=== PATIENT | female | born 1985 | race Caucasian/White ===

== ENCOUNTER 2018-02-15 01:05 | Observation (INO) | payer BC ==
[2018-02-15] MEDS ORDERED: TORAdol 30 mg Injection IV ONE (01:36)
--- NOTE | 2018-02-15 01:39 | ERPHSYRPT ---
- History of Present Illness Time Seen by Provider: 02/15/18 01:30 Historian: patient Exam Limitations: no limitations Patient Subjective Stated Complaint: pt states she has upper abd pain wheich started in her back earlier tonight and wraps around abd now. descibes pain as pressure Triage Nursing Assessment: pt alert and oriented, answers questions approp. pt ambulatoryw ith steady gait noted. respirations nonlabored with lungs cta. abd soft and ontender to light palpation. bowel sounds present x4 Physician History: 32 y/o female comes to the ER with complaints of left upper quadrant and left upper back pain that started this evening. Pt describes the pain as sharp, constant, 8/10, and pt has not taken any pain meds. Pt denies any fever, chills , chest pain, shortness of breath, nausea, vomiting or urinary symptoms. Timing/Duration: today Activities at Onset: none Quality: sharpness Abdominal Pain Onset Location: flank Pain Radiation: back Severity of Pain-Max: severe Severity of Pain-Current: severe Modifying Factors: Improves With: nothing Associated Symptoms: denies symptoms Previous symptoms: no prior history Allergies/Adverse Reactions: No Known Drug Allergies Allergy (Verified 02/15/18 01:21) Home Medications: No Reportable Medications [No Reported Medications] 02/15/18 [History] Hx Tetanus, Diphtheria Vaccination/Date Given: Yes Hx Influenza Vaccination/Date Given: No Hx Pneumococcal Vaccination/Date Given: No Immunizations Up to Date: Yes - Review of Systems Constitutional: No Fever, No Chills Eyes: No Symptoms Ears, Nose, & Throat: No Symptoms Respiratory: No Cough, No Dyspnea Cardiac: No Chest Pain, No Edema, No Syncope Abdominal/Gastrointestinal: Abdominal Pain, No Nausea, No Vomiting, No Diarrhea Genitourinary Symptoms: No Dysuria, No Frequency, No Hematuria Musculoskeletal: Back Pain, No Neck Pain Skin: No Rash Neurological: No Dizziness, No Focal Weakness, No Sensory Changes Psychological: No Symptoms Endocrine: No Symptoms All Other Systems: Reviewed and Negative - Past Medical History Pertinent Past Medical History: No - Past Surgical History Past Surgical History: Yes Other Surgical History: breast augmentation - Social History Smoking Status: Current every day smoker How long have you smoked: 10yrs Exposure to second hand smoke: Yes Drug Use: none Patient Lives Alone: No - Female History Hx Last Menstrual Period: mirena Hx Now: No - Nursing Vital Signs Nursing Vital Signs: Initial Vital Signs Temperature 99.2 F 02/15/18 01:12 Pulse Rate 95 H 02/15/18 01:12 Respiratory Rate 18 02/15/18 01:12 Blood Pressure 134/98 02/15/18 01:12 O2 Sat by Pulse Oximetry 98 02/15/18 01:12 Pain Scale Pain Intensity 6 - Physical Exam General Appearance: mild distress, alert Eye Exam: PERRL/EOMI, eyes nml inspection Ears, Nose, Throat Exam: normal ENT inspection, pharynx normal, moist mucous membranes Neck Exam: normal inspection, non-tender, supple, full range of motion Respiratory Exam: normal breath sounds, lungs clear, No respiratory distress Cardiovascular Exam: regular rate/rhythm, normal heart sounds Gastrointestinal/Abdomen Exam: soft, normal bowel sounds, No tenderness, No mass Back Exam: normal inspection, normal range of motion, No CVA tenderness, No vertebral tenderness Extremity Exam: normal inspection, normal range of motion, pelvis stable Neurologic Exam: alert, oriented x 3, cooperative, normal mood/affect, nml cerebellar function, sensation nml, No motor deficits Skin Exam: normal color, warm, dry SpO2: 98 Oxygen Delivery: Room Air - Course Nursing assessment & vital signs reviewed: Yes Ordered Tests: Active Orders 24 hr Category Date Time Status IV Insertion STAT Care 02/15/18 01:36 Active NPO (ED) STAT Care 02/15/18 01:36 Active ABDOMEN AND PELVIS W&WO CONTRA [CT] Stat Exams 02/15/18 01:37 Taken AMYLASE Stat Lab 02/15/18 01:30 Completed CBC W DIFF Stat Lab 02/15/18 01:30 Completed CMP Stat Lab 02/15/18 01:30 Completed D-DIMER QUANTITATION Stat Lab 02/15/18 01:30 Completed HCG QUALITATIVE,SERUM Stat Lab 02/15/18 01:30 Completed LIPASE Stat Lab 02/15/18 01:30 Completed Lactic Acid Stat Lab 02/15/18 01:40 Completed UA W/RFX UR CULTURE Stat Lab 02/15/18 01:49 Completed Medication Summary Generic Name Dose Route Start Last Admin Trade Name Freq PRN Reason Stop Dose Admin Sodium Chloride 1,000 mls @ 999 mls/hr 02/15/18 03:06 02/15/18 03:13 Sodium Chloride 0.9% 1000 Ml IV 02/15/18 04:06 999 mls/hr .Q1H1M STA Administration Discontinued Medications Generic Name Dose Route Start Last Admin Trade Name Brandi PRN Reason Stop Dose Admin Sodium Chloride Confirm 02/15/18 03:07 Sodium Chloride 0.9% 1000 Ml Administered 02/15/18 03:08 Dose 1,000 mls @ ud .ROUTE .[employer] ONE Ketorolac Tromethamine 30 mg 02/15/18 01:36 02/15/18 01:48 Toradol 30 Mg Injection IV 02/15/18 01:37 30 mg STAT ONE Administration Ketorolac Tromethamine Confirm 02/15/18 01:46 Toradol 30 Mg Injection Administered 02/15/18 01:47 Dose 30 mg .ROUTE .[employer] ONE Lab/Rad Data: Laboratory Result Diagrams 02/15/18 01:30 02/15/18 01:30 Laboratory Results 02/15/18 02/15/18 02/15/18 Range/Units 01:49 01:40 01:30 WBC (4.0-10.5) K/mm3 RBC (4.1-5.4) M/mm3 Hgb (12.0-16.0) gm/dl Hct (35-47) % MCV (78-100) fl MCH (26-32) pg MCHC (32-36) g/dl RDW (11.5-14.0) % Plt Count (150-450) K/mm3 MPV (6-9.5) fl Gran % (36.0-66.0) % Eos # (Auto) (0-0.5) Absolute Lymphs (auto) (1.0-4.6) Absolute Monos (auto) (0.0-1.3) Lymphocytes % (24.0-44.0) % Monocytes % (0.0-12.0) % Eosinophils % (0.00-5.0) % Basophils % (0.0-0.4) % Absolute Granulocytes (1.4-6.9) Basophils # (0-0.4) D-Dimer 927 H* (215-500) ng/mL Sodium (137-145) mmol/L Potassium (3.5-5.1) mmol/L Chloride (98-107) mmol/L Carbon Dioxide (22-30) mmol/L Anion Gap (5-15) MEQ/L BUN (7-17) mg/dL Creatinine (0.52-1.04) mg/dL Estimated GFR ML/MIN Glucose (74-106) mg/dL Lactic Acid 0.7 (0.4-2.0) Calcium (8.4-10.2) mg/dL Total Bilirubin (0.2-1.3) mg/dL AST (14-36) U/L ALT (0-35) U/L Alkaline Phosphatase (38-126) U/L Serum Total Protein (6.3-8.2) g/dL Albumin (3.5-5.0) g/dL Amylase (30-110) U/L Lipase (23-300) U/L Serum , Qual (Negative) Ur Collection Type VOID Urine Color GREEN (YELLOW) Urine Appearance HAZY (CLEAR) Urine pH 8.0 (5-6) Ur Specific [place] 1.005 (1.005-1.025) Urine Protein NEGATIVE (Negative) Urine Ketones NEGATIVE (NEGATIVE) Urine Blood NEGATIVE (0-5) Melecio/ul Urine Nitrite NEGATIVE (NEGATIVE) Urine Bilirubin NEGATIVE (NEGATIVE) Urine Urobilinogen NORMAL (0-1) mg/dL Ur Leukocyte Esterase NEGATIVE (NEGATIVE) Urine Culture Reflexed NO (NO) Urine Glucose NEGATIVE (NEGATIVE) mg/dL Specimen Received 02/15 21502/15/18 02/15/18 02/15/18 Range/Units 01:30 01:30 01:30 WBC 7.5 (4.0-10.5) K/mm3 RBC 4.90 (4.1-5.4) M/mm3 Hgb 14.9 (12.0-16.0) gm/dl Hct 42.1 (35-47) % MCV 85.9 (78-100) fl MCH 30.4 (26-32) pg MCHC 35.4 (32-36) g/dl RDW 13.3 (11.5-14.0) % Plt Count 181 (150-450) K/mm3 MPV 9.9 H (6-9.5) fl Gran % 60.9 (36.0-66.0) % Eos # (Auto) 0.16 (0-0.5) Absolute Lymphs (auto) 2.10 (1.0-4.6) Absolute Monos (auto) 0.65 (0.0-1.3) Lymphocytes % 28.0 (24.0-44.0) % Monocytes % 8.7 (0.0-12.0) % Eosinophils % 2.1 (0.00-5.0) % Basophils % 0.3 (0.0-0.4) % Absolute Granulocytes 4.57 (1.4-6.9) Basophils # 0.02 (0-0.4) D-Dimer (215-500) ng/mL Sodium 140 (137-145) mmol/L Potassium 4.1 (3.5-5.1) mmol/L Chloride 104 (98-107) mmol/L Carbon Dioxide 25 (22-30) mmol/L Anion Gap 14.6 (5-15) MEQ/L BUN 14 (7-17) mg/dL Creatinine 0.91 (0.52-1.04) mg/dL Estimated GFR > 60.0 ML/MIN Glucose 99 (74-106) mg/dL Lactic Acid (0.4-2.0) Calcium 9.6 (8.4-10.2) mg/dL Total Bilirubin 0.50 (0.2-1.3) mg/dL AST 23 (14-36) U/L ALT 22 (0-35) U/L Alkaline Phosphatase 55 (38-126) U/L Serum Total Protein 7.8 (6.3-8.2) g/dL Albumin 4.7 (3.5-5.0) g/dL Amylase 56 (30-110) U/L Lipase 172 (23-300) U/L Serum , Qual NEGATIVE (Negative) Ur Collection Type Urine Color (YELLOW) Urine Appearance (CLEAR) Urine pH (5-6) Ur Specific [place] (1.005-1.025) Urine Protein (Negative) Urine Ketones (NEGATIVE) Urine Blood (0-5) Melecio/ul Urine Nitrite (NEGATIVE) Urine Bilirubin (NEGATIVE) Urine Urobilinogen (0-1) mg/dL Ur Leukocyte Esterase (NEGATIVE) Urine Culture Reflexed (NO) Urine Glucose (NEGATIVE) mg/dL Specimen Received - Progress Progress: improved Progress Note: 02/15/18 03:57 Pt feels better after receiving toradol. After re-evaluating the patient, she states that the pain started epigastric area, radiating to the LUQ and towards the upper part of the back. The patient went for CT scan abd/pelvis and the d- dimer came back elevated at 927. As a result, since the patient did receive IV contrast, either a CTA chest or V/Q scan needs to be performed later in the day. The CT abd/pelvis shows a distended gallbladder and mild gallbladder wall thickening. The labs, including LFTs are within normal limits. Since the patient is on mirena and did have a SBP drop in the 90's with an elevated d- dimer, patient will receive a dose of lovenox. Pt will receive a CTA chest or V/ Q scan and a gallbladder US later today. Pt has been admitted to Dr Cadena. - Departure Time of Disposition: 04:03 Departure Disposition: Observation Clinical Impression: Abdominal pain Qualifiers: Abdominal location: left upper quadrant Qualified Code(s): R10.12 - Left upper quadrant pain Condition: Stable Critical Care Time: No
[2018-02-15] MEDS ORDERED: TORAdol 30 mg Injection ONE (01:46)
[2018-02-15 02:10] LABS: ALBUMIN 4.7 g/dL (3.5-5.0); ALKALINE PHOSPHATASE 55 U/L (38-126); AMYLASE 56 U/L (30-110); ANION GAP 14.6 MEQ/L (5-15); BLOOD UREA NITROGEN 14 mg/dL (7-17); CHLORIDE 104 mmol/L (98-107); Calcium 9.6 mg/dL (8.4-10.2); Carbon Dioxide 25 mmol/L (22-30); Creatinine 1 0.91 mg/dL (0.52-1.04); Glucose 99 mg/dL (74-106); LIPASE 172 U/L (23-300); Potassium 4.1 mmol/L (3.5-5.1); SGOT/AST 23 U/L (14-36); SGPT/ALT 22 U/L (0-35); SODIUM 140 mmol/L (137-145); Total Protein 7.8 g/dL (6.3-8.2)
[2018-02-15 02:13] LABS: BASOPHIL % 0.3 % (0.0-0.4); Basophil (Absolute #) 0.02 (0-0.4); Eosinophil % 2.1 % (0.00-5.0); Eosinophil (Absolute #) 0.16 (0-0.5); Granulocyte Absolute (ANC) 4.57 (1.4-6.9); Granulocytes % 60.9 % (36.0-66.0); Hematocrit 42.1 % (35-47); Hemoglobin 14.9 gm/dl (12.0-16.0); Mean Cell Volume 85.9 fl (78-100); Mean Corpuscular Hemoglobin 30.4 pg (26-32); Mean Corpuscular Hgb Concent. 35.4 g/dl (32-36); Mean Platelet Volume 9.9 fl (6-9.5); Monocyte (Absolute #) 0.65 (0.0-1.3); Monocytes % 8.7 % (0.0-12.0); Platelet Count 181 K/mm3 (150-450); Red Cell Distribution Width 13.3 % (11.5-14.0); White Blood Count 7.5 K/mm3 (4.0-10.5)
[2018-02-15 02:16] LABS: Appearance HAZY (CLEAR); Bilirubin NEGATIVE (NEGATIVE); Blood NEGATIVE Ery/ul (0-5); Glucose NEGATIVE (NEGATIVE); Ketones NEGATIVE (NEGATIVE); Leukocyte Esterase NEGATIVE (NEGATIVE); Nitrite NEGATIVE (NEGATIVE); Protein,Urine Dip NEGATIVE (Negative); Specific Gravity 1.005 (1.005-1.025); Urobilinogen NORMAL mg/dL (0-1)
[2018-02-15] MEDS ORDERED: Sodium Chloride 0.9% 1000 ML 1,000 ML IV STA (03:06)
[2018-02-15] MEDS ORDERED: Sodium Chloride 0.9% 1000 ML 1,000 ML ONE (03:07)
[2018-02-15] MEDS ORDERED: ENOXAPARIN SODIUM SQ ONE ×2 (03:56→04:00)
[2018-02-15] MEDS ORDERED: MORPHINE SULFATE 2 MG INJ IV PRN (04:03)
[2018-02-15] MEDS ORDERED: Zofran 4 MG/2 ML VIAL IV PRN (04:03)
[2018-02-15] MEDS ORDERED: ENOXAPARIN SODIUM SQ SCH ×2 (04:15→18:00)
[2018-02-15] MEDS ORDERED: Sodium Chloride 0.9% 1000 ML 1,000 ML IV SCH (04:15)
--- NOTE | 2018-02-15 08:39 | XRAY ---
Indication: Diffuse abdominal pain. Multiple contiguous axial images obtained through the abdomen and pelvis prior to and following 80 cc Isovue 370 contrast only. Comparison: None Lung bases demonstrates mild bibasilar dependent atelectasis. No infiltrate or effusion. Heart is not enlarged. Partially visualized bilateral breast implants. Noncontrasted images through the abdomen negative for pathologic visceral calcification/calculi. Noncontrasted stomach and bowel loops appear nonobstructed. Normal appendix. Mild scattered colonic fecal debris throughout. Small cul-de-sac free fluid presumed physiologic from rupture/leaking cyst. IUD in situ. Postcontrast images demonstrates normal visceral enhancement and renal excretion. Borderline gallbladder wall thickening without gallstones or biliary distention. Remaining liver, pancreas, spleen, adrenal glands, kidneys, ureters, bladder, and aorta appear unremarkable. No pathologic retroperitoneal lymphadenopathy. Osseous structures intact. No ventral or inguinal hernias. Impression: 1. Borderline gallbladder wall thickening. Gallbladder sonogram yield further information if clinically warranted. 2. Mild fecal stasis without obstruction. 3. Negative pathologic visceral calcification/calculi. 4. Small cul-de-sac fluid presumed physiologic. Comment: Preliminary interpretation was made by [facility]. No critical discrepancy. CTDI 15.22
--- NOTE | 2018-02-15 08:41 | XRAY ---
Indication: Abdomen pain. Gallbladder wall thickening on same-day CT. Two-dimensional gallbladder sonogram performed. Comparison: None Gallbladder normally distended with 2 cm gallstone. There is gallbladder wall thickening measuring 3.9 mm. No pericholecystic fluid. Common bile duct measures 4.3 mm. No intrahepatic biliary distention. Remaining visualized portions of the liver, pancreas, and right kidney appear sonographically normal. Right kidney measures 10.5 cm in length. No ascites. Impression: Cholelithiasis with gallbladder wall thickening. Rule out chronic cholecystitis.
--- NOTE | 2018-02-15 09:13 | PCM.HP ---
History of Present Illness - Chief Complaint Chief Complaint: abdominal pain History of Present Illness: is a 32 year old female who started having L sided thoracic pain last night while watching TV, regardless of position. At 11:30 pm last night woke with severe epigastric pain radiating to LUQ and L thoracic back, 10/10 initially, then 8/10 in ER. Mar[place] like "a tennis ball" in her epigastric area when she laid on her stomach. Ate nachos and sausage, which is normal for her. Marble a lot better prior to receiving the toradol. Since then has only some soreness in her thoracic back, and would like to drink. Urinating fine. Does have a mirena IUD. D-dimer elevated. Systolic BP was in the 90s at one point so she was given lovenox at admission. She did go to [place] [address] showed distended gallbladder with wall thickening, bilat ovarian cysts, and small amt free pelvic fluid. - Review of Systems Abdominal/Gastrointestinal: Abdominal Pain, Nausea (with pain), Diarrhea ( chronic) All Other Systems: Reviewed and Negative Medications & Allergies Home Medications: Home Medication List No Reportable Medications [No Reported Medications] 02/15/18 [History Confirmed 02/15/18] Allergies/Adverse Reactions: Allergies Allergy/AdvReac Type Severity Reaction Status Date / Time No Known Drug Allergies Allergy Verified 02/15/18 01:21 - Past Medical History Past Medical History: No - Female History Hx Last Menstrual Period: mirena Are you now?: No - Past Surgical History Past Surgical History: Yes Other Surgical History: breast augmentation. LEEP last may - Social History Smoking Status: Current every day smoker How long have you smoked: 10yrs Exposure to second hand smoke: Yes Alcohol: Occasionally Drug Use: none - Physical Exam Vital Signs: Vital Signs - 24 hr Temp Pulse Resp BP Pulse Ox 02/15/18 08:00 98.5 F 69 16 97/53 99 02/15/18 05:04 98.7 F 87 18 127/81 97 02/15/18 04:03 98 02/15/18 03:14 99.2 F 71 18 93/55 98 02/15/18 01:55 94 H 18 117/74 98 02/15/18 01:12 99.2 F 95 H 18 134/98 98 Results - Labs Lab/Micro Results: Lab Results-Last 24 Hours 02/15/18 02/15/18 02/15/18 Range/Units 01:30 01:30 01:30 WBC 7.5 (4.0-10.5) K/mm3 RBC 4.90 (4.1-5.4) M/mm3 Hgb 14.9 (12.0-16.0) gm/dl Hct 42.1 (35-47) % MCV 85.9 (78-100) fl MCH 30.4 (26-32) pg MCHC 35.4 (32-36) g/dl RDW 13.3 (11.5-14.0) % Plt Count 181 (150-450) K/mm3 MPV 9.9 H (6-9.5) fl Gran % 60.9 (36.0-66.0) % Eos # (Auto) 0.16 (0-0.5) Absolute Lymphs (auto) 2.10 (1.0-4.6) Absolute Monos (auto) 0.65 (0.0-1.3) Lymphocytes % 28.0 (24.0-44.0) % Monocytes % 8.7 (0.0-12.0) % Eosinophils % 2.1 (0.00-5.0) % Basophils % 0.3 (0.0-0.4) % Absolute Granulocytes 4.57 (1.4-6.9) Basophils # 0.02 (0-0.4) D-Dimer (215-500) ng/mL Sodium 140 (137-145) mmol/L Potassium 4.1 (3.5-5.1) mmol/L Chloride 104 (98-107) mmol/L Carbon Dioxide 25 (22-30) mmol/L Anion Gap 14.6 (5-15) MEQ/L BUN 14 (7-17) mg/dL Creatinine 0.91 (0.52-1.04) mg/dL Estimated GFR > 60.0 ML/MIN Glucose 99 (74-106) mg/dL Lactic Acid (0.4-2.0) Calcium 9.6 (8.4-10.2) mg/dL Total Bilirubin 0.50 (0.2-1.3) mg/dL AST 23 (14-36) U/L ALT 22 (0-35) U/L Alkaline Phosphatase 55 (38-126) U/L Serum Total Protein 7.8 (6.3-8.2) g/dL Albumin 4.7 (3.5-5.0) g/dL Amylase 56 (30-110) U/L Lipase 172 (23-300) U/L Serum , Qual NEGATIVE (Negative) Ur Collection Type Urine Color (YELLOW) Urine Appearance (CLEAR) Urine pH (5-6) Ur Specific [place] (1.005-1.025) Urine Protein (Negative) Urine Ketones (NEGATIVE) Urine Blood (0-5) Melecio/ul Urine Nitrite (NEGATIVE) Urine Bilirubin (NEGATIVE) Urine Urobilinogen (0-1) mg/dL Ur Leukocyte Esterase (NEGATIVE) Urine Culture Reflexed (NO) Urine Glucose (NEGATIVE) mg/dL Specimen Received 02/15/18 02/15/18 02/15/18 Range/Units 01:30 01:40 01:49 WBC (4.0-10.5) K/mm3 RBC (4.1-5.4) M/mm3 Hgb (12.0-16.0) gm/dl Hct (35-47) % MCV (78-100) fl MCH (26-32) pg MCHC (32-36) g/dl RDW (11.5-14.0) % Plt Count (150-450) K/mm3 MPV (6-9.5) fl Gran % (36.0-66.0) % Eos # (Auto) (0-0.5) Absolute Lymphs (auto) (1.0-4.6) Absolute Monos (auto) (0.0-1.3) Lymphocytes % (24.0-44.0) % Monocytes % (0.0-12.0) % Eosinophils % (0.00-5.0) % Basophils % (0.0-0.4) % Absolute Granulocytes (1.4-6.9) Basophils # (0-0.4) D-Dimer 927 H* (215-500) ng/mL Sodium (137-145) mmol/L Potassium (3.5-5.1) mmol/L Chloride (98-107) mmol/L Carbon Dioxide (22-30) mmol/L Anion Gap (5-15) MEQ/L BUN (7-17) mg/dL Creatinine (0.52-1.04) mg/dL Estimated GFR ML/MIN Glucose (74-106) mg/dL Lactic Acid 0.7 (0.4-2.0) Calcium (8.4-10.2) mg/dL Total Bilirubin (0.2-1.3) mg/dL AST (14-36) U/L ALT (0-35) U/L Alkaline Phosphatase (38-126) U/L Serum Total Protein (6.3-8.2) g/dL Albumin (3.5-5.0) g/dL Amylase (30-110) U/L Lipase (23-300) U/L Serum , Qual (Negative) Ur Collection Type VOID Urine Color GREEN (YELLOW) Urine Appearance HAZY (CLEAR) Urine pH 8.0 (5-6) Ur Specific [place] 1.005 (1.005-1.025) Urine Protein NEGATIVE (Negative) Urine Ketones NEGATIVE (NEGATIVE) Urine Blood NEGATIVE (0-5) Melecio/ul Urine Nitrite NEGATIVE (NEGATIVE) Urine Bilirubin NEGATIVE (NEGATIVE) Urine Urobilinogen NORMAL (0-1) mg/dL Ur Leukocyte Esterase NEGATIVE (NEGATIVE) Urine Culture Reflexed NO (NO) Urine Glucose NEGATIVE (NEGATIVE) mg/dL Specimen Received 02/15 215 - Radiology Impressions Radiology Exams & Impressions: Radiology Procedures Category Date Time Status ABDOMEN AND PELVIS W&WO CONTRA [CT] Stat Exams 02/15/18 01:37 Completed GALLBLADDER [US] Stat Exams 02/15/18 04:50 Completed Assessment/Plan (1) Thoracic back pain Current Visit: Yes Status: Acute Qualifiers: Chronicity: acute Back pain laterality: left Qualified Code(s): M54.6 - Pain in thoracic spine Assessment & Plan: would still like to r/o PE, na in light of recent travel and elevated d-dimer. VQ scan today. Code(s): M54.6 - PAIN IN THORACIC SPINE (2) Elevated d-dimer Current Visit: Yes Status: Acute Code(s): R79.89 - OTHER SPECIFIED ABNORMAL FINDINGS OF BLOOD CHEMISTRY (3) Abdominal pain Current Visit: Yes Status: Acute Qualifiers: Abdominal location: left upper quadrant Qualified Code(s): R10.12 - Left upper quadrant pain Assessment & Plan: likely d/t cholecystitis. u/s pending. Code(s): R10.9 - UNSPECIFIED ABDOMINAL PAIN
--- NOTE | 2018-02-15 13:52 | XRAY ---
Indication: Left back pain, short of breath, and elevated d-dimer. Comparison: None Patient received 5.2 mCi technetium 99 MAA for the perfusion portion of the exam. Patient inhaled 32.5 mCi of aerosolized technetium 99 DTPA for the ventilation portion. Multiplanar images obtained. Perfusion images demonstrates homogeneous radiopharmaceutical activity bilaterally without segmental/subsegmental perfusion defects. Ventilation images also demonstrates homogeneous radiopharmaceutical activity bilaterally. Impression: Normal nuclear medicine ventilation perfusion scan.
--- NOTE | 2018-02-15 13:54 | XRAY ---
Indication: Short of breath and left back pain. Elevated d-dimer. Comparison: None PA/lateral chest demonstrates normal heart, lungs, and bony thorax with a few tiny incidental calcified granulomas.
--- NOTE | 2018-02-15 15:19 | PCM.DS ---
Discharge Summary Date of Admission: 02/15/18 04:41 Admitting Physician: KIRAN MCKEON Primary Care Provider: KIRAN MCKEON Allergies Allergies No Known Drug Allergies Allergy (Verified 02/15/18 01:21) Hospital Summary - Hospital Course Hospital Course: Pt admitted through ER with back pain and epigastric pain. CT abd/pelvis with borderline gallbladder wall thickening and mild fecal stasis. GB ultrasound with cholelithiasis and cholecystitis. D-dimer was quite elevated (927) in the ER, but unable to do another scan with IV contrast since it was within 24 hours of [address] abdominal CT scan. Pt was given a therapeutic dose of lovenox. This morning she noted her back was just "sore" but she had a hx of a trip to [place] 2 weeks ago, so VQ scan was ordered and negative. Now she is very hungry. I discussed low fat diet with her this morning. Will d/c to home and have her f/.u with surgery. - Vitals & Intake/Output Vital Signs: Vital Signs Temperature 98.5 F 02/15/18 12:00 Pulse Rate 65 02/15/18 12:00 Respiratory Rate 16 02/15/18 12:00 Blood Pressure 95/54 02/15/18 12:00 O2 Sat by Pulse Oximetry 98 02/15/18 12:00 Intake & Output: Intake & Output 02/13/18 02/14/18 02/15/18 02/16/18 11:59 11:59 11:59 11:59 Weight 71.9 kg - Lab Result Diagrams: 02/15/18 01:30 02/15/18 01:30 Lab Results-Last 24 Hrs: Lab Results-Last 24 Hours 02/15/18 02/15/18 02/15/18 Range/Units 01:30 01:30 01:30 WBC 7.5 (4.0-10.5) K/mm3 RBC 4.90 (4.1-5.4) M/mm3 Hgb 14.9 (12.0-16.0) gm/dl Hct 42.1 (35-47) % MCV 85.9 (78-100) fl MCH 30.4 (26-32) pg MCHC 35.4 (32-36) g/dl RDW 13.3 (11.5-14.0) % Plt Count 181 (150-450) K/mm3 MPV 9.9 H (6-9.5) fl Gran % 60.9 (36.0-66.0) % Eos # (Auto) 0.16 (0-0.5) Absolute Lymphs (auto) 2.10 (1.0-4.6) Absolute Monos (auto) 0.65 (0.0-1.3) Lymphocytes % 28.0 (24.0-44.0) % Monocytes % 8.7 (0.0-12.0) % Eosinophils % 2.1 (0.00-5.0) % Basophils % 0.3 (0.0-0.4) % Absolute Granulocytes 4.57 (1.4-6.9) Basophils # 0.02 (0-0.4) D-Dimer (215-500) ng/mL Sodium 140 (137-145) mmol/L Potassium 4.1 (3.5-5.1) mmol/L Chloride 104 (98-107) mmol/L Carbon Dioxide 25 (22-30) mmol/L Anion Gap 14.6 (5-15) MEQ/L BUN 14 (7-17) mg/dL Creatinine 0.91 (0.52-1.04) mg/dL Estimated GFR > 60.0 ML/MIN Glucose 99 (74-106) mg/dL Lactic Acid (0.4-2.0) Calcium 9.6 (8.4-10.2) mg/dL Total Bilirubin 0.50 (0.2-1.3) mg/dL AST 23 (14-36) U/L ALT 22 (0-35) U/L Alkaline Phosphatase 55 (38-126) U/L Serum Total Protein 7.8 (6.3-8.2) g/dL Albumin 4.7 (3.5-5.0) g/dL Amylase 56 (30-110) U/L Lipase 172 (23-300) U/L Serum , Qual NEGATIVE (Negative) Ur Collection Type Urine Color (YELLOW) Urine Appearance (CLEAR) Urine pH (5-6) Ur Specific [place] (1.005-1.025) Urine Protein (Negative) Urine Ketones (NEGATIVE) Urine Blood (0-5) Melecio/ul Urine Nitrite (NEGATIVE) Urine Bilirubin (NEGATIVE) Urine Urobilinogen (0-1) mg/dL Ur Leukocyte Esterase (NEGATIVE) Urine Culture Reflexed (NO) Urine Glucose (NEGATIVE) mg/dL Specimen Received 02/15/18 02/15/18 02/15/18 Range/Units 01:30 01:40 01:49 WBC (4.0-10.5) K/mm3 RBC (4.1-5.4) M/mm3 Hgb (12.0-16.0) gm/dl Hct (35-47) % MCV (78-100) fl MCH (26-32) pg MCHC (32-36) g/dl RDW (11.5-14.0) % Plt Count (150-450) K/mm3 MPV (6-9.5) fl Gran % (36.0-66.0) % Eos # (Auto) (0-0.5) Absolute Lymphs (auto) (1.0-4.6) Absolute Monos (auto) (0.0-1.3) Lymphocytes % (24.0-44.0) % Monocytes % (0.0-12.0) % Eosinophils % (0.00-5.0) % Basophils % (0.0-0.4) % Absolute Granulocytes (1.4-6.9) Basophils # (0-0.4) D-Dimer 927 H* (215-500) ng/mL Sodium (137-145) mmol/L Potassium (3.5-5.1) mmol/L Chloride (98-107) mmol/L Carbon Dioxide (22-30) mmol/L Anion Gap (5-15) MEQ/L BUN (7-17) mg/dL Creatinine (0.52-1.04) mg/dL Estimated GFR ML/MIN Glucose (74-106) mg/dL Lactic Acid 0.7 (0.4-2.0) Calcium (8.4-10.2) mg/dL Total Bilirubin (0.2-1.3) mg/dL AST (14-36) U/L ALT (0-35) U/L Alkaline Phosphatase (38-126) U/L Serum Total Protein (6.3-8.2) g/dL Albumin (3.5-5.0) g/dL Amylase (30-110) U/L Lipase (23-300) U/L Serum , Qual (Negative) Ur Collection Type VOID Urine Color GREEN (YELLOW) Urine Appearance HAZY (CLEAR) Urine pH 8.0 (5-6) Ur Specific [place] 1.005 (1.005-1.025) Urine Protein NEGATIVE (Negative) Urine Ketones NEGATIVE (NEGATIVE) Urine Blood NEGATIVE (0-5) Melecio/ul Urine Nitrite NEGATIVE (NEGATIVE) Urine Bilirubin NEGATIVE (NEGATIVE) Urine Urobilinogen NORMAL (0-1) mg/dL Ur Leukocyte Esterase NEGATIVE (NEGATIVE) Urine Culture Reflexed NO (NO) Urine Glucose NEGATIVE (NEGATIVE) mg/dL Specimen Received 02/15 215 - Radiology Exams Ordered Rad Exams-Entire Visit: Radiology Procedures Category Date Time Status ABDOMEN AND PELVIS W&WO CONTRA [CT] Stat Exams 02/15/18 01:37 Completed CHEST 2 VIEWS (PA AND LAT) Stat Exams 02/15/18 13:06 Completed GALLBLADDER [US] Stat Exams 02/15/18 04:50 Completed PULMONARY PERF VENTILATION [NUCMED] Urgent Exams 02/15/18 09:22 Completed Discharge Exam General Appearance: no apparent distress (exam done this morning.), alert Neurologic Exam: alert, oriented x 3, cooperative Skin Exam: normal color, warm, dry, No rash Eye Exam: eyes nml inspection Ears, Nose, Throat Exam: moist mucous membranes Neck Exam: normal inspection, non-tender, No lymphadenopathy Respiratory Exam: normal breath sounds, lungs clear, No crackles/rales, No rhonchi, No wheezing Cardiovascular Exam: regular rate/rhythm, normal heart sounds, No murmur Gastrointestinal/Abdomen Exam: soft, normal bowel sounds, No tenderness, No distention, No mass, No guarding, No rebound Extremity Exam: normal inspection, No pedal edema, No swelling Back Exam: normal inspection, No rash Final Diagnosis/Problem List - Final Discharge Diagnosis/Problem (1) Thoracic back pain Current Visit: Yes Status: Acute Assessment & Plan: Ruled out for PE. Likely related to gallbladder pain. (2) Elevated d-dimer Current Visit: Yes Status: Acute (3) Abdominal pain Current Visit: Yes Status: Acute Assessment & Plan: likely due to gallbladder disease. (4) Cholelithiases Current Visit: Yes Status: Acute Assessment & Plan: referred to surgery outpatient. This morning denied any abdominal pain. - Discharge Disposition: Home, Self-Care Condition: Good Prescriptions: No Action No Reportable Medications [No Reported Medications] Additional Instructions: Return to ER for chest pain, severe back pain, severe abdominal pain, shortness of breath, inability to tolerate liquids, fever over 100.4, or other worrisome symptoms. Follow low fat diet for your gallbladder. Follow up with surgeon. OK to try TUMs or zantac as needed for abdominal discomfort. Follow up with: KIRAN MCKEON [Primary Care Provider] - 1 Week
[2018-02-15 15:43] VITALS: BP 106/67; PULSE 60; O2SAT 99
== END 2018-02-15 14:50 | disposition home or self-care (01) ==
LOC: ED 01:05 → MED SURG 04:41
PROVIDERS: ADMIT Family Medicine; ATTEND Family Medicine
DX: M54.6 Pain in thoracic spine (principal); R79.89 Other specified abnormal findings of blood chemistry; R10.12 Left upper quadrant pain; K80.20 Calculus of gallbladder without cholecystitis without obstruction; N83.202 Unspecified ovarian cyst, left side; N83.201 Unspecified ovarian cyst, right side; Z72.0 Tobacco use
CPT/HCPCS: 36000; 36415; 71046; 74178; 76705; 78582; 80053; 81002; 82150; 83605; 83690; 84703; 85025; 85379; 93268; 96360; 96372; 96374; 99285; A9540; A9567; J1650; J1885; G0378

== ENCOUNTER 2018-04-04 06:37 | Day surgery (SDC) | payer BC ==
--- NOTE | 2018-04-03 12:40 | HP ---
DATE OF SURGERY: 04/04/2018 ADMISSION DIAGNOSIS: Gallstones. ANTICIPATED PROCEDURE: Cholecystectomy. HISTORY OF PRESENT ILLNESS: Patient presents with upper abdominal pain. Ultrasound positive. Seen and examined. Procedure discussed in detail and wished to proceed. PAST MEDICAL HISTORY: ALLERGIES: NONE. MEDICATIONS: None. PAST SURGICAL HISTORY: Breast augmentation. LEEP. SOCIAL HISTORY: Half pack per day. ETOH negative. FAMILY HISTORY: Negative. PHYSICAL EXAMINATION: VITAL SIGNS: Normal. CHEST: Clear. COR: Regular. ABDOMEN: No palpable organomegaly or mass. IMPRESSION: Gallstones symptomatic. PLAN: Laparoscopic cholecystectomy.
[2018-04-04] MEDS ORDERED: Decadron 4 MG INJ IV ONE (06:38)
[2018-04-04] MEDS ORDERED: Quelicin Fliptop 200 MG/10 ML IJ ONE (06:38)
[2018-04-04] MEDS ORDERED: BRIDION 200MG/2ML IV ONE (06:38)
[2018-04-04] MEDS ORDERED: SUBLIMAZE 100 MCG/2 ML IV ONE (06:38)
[2018-04-04] MEDS ORDERED: DIPRIVAN 200 MG/20 ML IV ONE (06:38)
[2018-04-04] MEDS ORDERED: Zemuron 100 MG/10 ML IJ ONE (06:38)
[2018-04-04] MEDS ORDERED: TORAdol 30 mg Injection IJ ONE (06:38)
[2018-04-04] MEDS ORDERED: Zofran 4 MG/2 ML VIAL IV ONE (06:38)
[2018-04-04] MEDS ORDERED: Lactated Ringers 1,000 ML IV ONE ×2 (06:51→06:53)
[2018-04-04] MEDS ORDERED: Sensorcaine 0.25% 10 ML ONE (06:51)
[2018-04-04] MEDS ORDERED: MEFOXIN 2 GM PREMIX** 2 GM/50 ML ML IV SCH (07:00)
[2018-04-04] MEDS ORDERED: Lactated Ringers 1,000 ML IV SCH (07:00)
[2018-04-04 10:32] VITALS: O2SAT 99
[2018-04-04 10:57] VITALS: BP 127/89; PULSE 78
--- NOTE | 2018-04-05 09:43 | OP ---
SURGERY DATE/TIME: 04/04/2018 0903 PREOPERATIVE DIAGNOSIS: Symptomatic cholelithiasis. POSTOPERATIVE DIAGNOSIS: Symptomatic cholelithiasis. PROCEDURE: Laparoscopic cholecystectomy. SURGEON: Dr. Vinnie Winters. ANESTHESIA: General endotracheal tube. COMPLICATIONS: None. CONDITION: Stable. INDICATIONS: A patient requiring cholecystectomy. Taken to surgery. DESCRIPTION OF PROCEDURE AND FINDINGS: General anesthetic, routine prep and drape. Veress needle inserted. Opening pressure of 1, insufflating pressure 14. Four - 5's. Good visualization. Cystic duct defined. Cystic artery defined. Both structures triply clipped and transected. Clips noted to be across and well approximated. Gallbladder rolled out of gallbladder fossa. The gallbladder delivered through upper abdominal port. Field is clean and dry. CO2 ex-sufflated. Port site closed with 0 Vicryl, 4-0 Vicryl and Steri-Strips.
== END 2018-04-04 11:17 | disposition home or self-care (01) ==
LOC: SDC 06:37
PROVIDERS: ATTEND Surgery
DX: K80.20 Calculus of gallbladder without cholecystitis without obstruction (principal)
CPT/HCPCS: 84703; 88304; 94250; J0330; J0694; J1100; J1885; J2405; J2704; J3010